=== PATIENT | female | born 1970 | race African-American/Black ===

== ENCOUNTER 2016-03-12 12:37 | Observation (INO) | payer OTHER ==
[~2016-03-12] VITALS: Ht 167.6 cm; Wt 126.2 kg
[2016-03-12] VITALS (7 sets, daily range): BP systolic 116–149; BP diastolic 68–83
[~2016-03-12 12:37] MED LIST: ACYCLOVIR200 M1 NG; ALEVE220 MG PO; CARVEDILOL6.25 MG PO; CLINDAMYCIN HC300 MG PO; LEXAPRO20 MG PO; LISINOPRIL10 MG PO; MUCINEX DM ER1 EACH PO; PRILOSEC OTC20 MG PO; SPIRONOLACTONE25 MG PO; TRAMADOL HCL50 MG PO; TRAZODONE HCL50 MG PO; TYLENOL EXTRA500 MG PO; ZANTAC 2525 MG PO; ZOVIRAX800 M1 PO
[2016-03-12 14:20] LABS: CHLORIDE 107 mEq/L (99-109); POTASSIUM 4.5 mEq/L (3.7-5.4); SODIUM 136 mEq/L (136-147)
[2016-03-12 14:22] LABS: GLUCOSE 129 mg/dL (70-99)
[2016-03-12 14:23] LABS: ANION GAP 10 MEQ/L (2-14)
[2016-03-12 14:24] LABS: INTER. NORMALIZED RATIO 1.1; PROTHROMBIN TIME 11.2 (9.2-11.2); PTT 39.2 (25-32); TOTAL BILIRUBIN 0.3 mg/dL (0.0-1.0)
[2016-03-12 14:25] LABS: ALKALINE PHOSPHATASE 54 IU/L (3-129)
[2016-03-12 14:26] LABS: GFR ESTIMATE (CALCULATED) > 59 mL/min/
[2016-03-12 14:27] LABS: UREA NITROGEN (BUN) 12 mg/dL (9-23)
[2016-03-12 14:29] LABS: LIPASE 58 U/L (1.0-51.0)
[2016-03-12 14:32] LABS: TROP-I INTERPRETATION NEGATIVE; TROPONIN-I 0.02 ng/mL (0.0-0.30)
[2016-03-12 14:50] LABS: EOSINOPHIL (%) 0 % (0-5); HEMATOCRIT 15.9 % (36.0-46.0); IMMATURE GRANULOCYTE (%) 0.7 % (0.0-0.7); IMMATURE GRANULOCYTE COUNT 0.5 K/uL; LYMPHOCYTE COUNT 2.2 K/uL (1.0-2.8); MCH 25.1 PG (29.0-34.0); MCHC 28.9 G/DL (30.0-36.0); MCV 86.9 FL (83-99); MEAN PLAT.VOLUME 10.3 uM^3 (9.5-12.4); MONOCYTE (%) 2.8 % (3-12); MONOCYTE COUNT 0.2 K/uL (0-0.8); NEUTROPHIL (%) 63.4 % (45-76); NEUTROPHIL COUNT 4.3 K/uL (1.8-6.4); PLATELET COUNT 402 K/uL (156-360); RBC DIS.WIDTH-CV 16.9 % (11.8-14.6); RBC DIS.WIDTH-SD 51.6 % (39-53); RED BLOOD COUNT 1.83 M/uL (3.80-5.20); WHITE BLOOD COUNT 6.8 K/uL (4.1-10.2)
[2016-03-12 15:52] LABS: ABSOLUTE RETICULOCYTE CT. 0.07 M/uL (0.02-0.08); IMM.RETIC FRACTION 14.9 % (3-19); RETIC HGB EQUIVALENT 13.4 (28-36); RETICULOCYTE COUNT 4.1 % (0.5-1.8)
[2016-03-12] MEDS ORDERED: POTASSIUM CHLO10 ME4 PO (16:25)
[2016-03-12] MEDS ORDERED: FUROSEMIDE20 MG PO (16:26)
[2016-03-12] MEDS ORDERED: ATOVAQUONE750 MG/5 M PO (16:26)
[2016-03-12] MEDS ORDERED: PANTOPRAZOLE SO40 MG PO (16:26)
[2016-03-12] MEDS ORDERED: RITUXAN10 MG/ML IJ (16:29)
[2016-03-12] MEDS ORDERED: PREDNISONE10 MG PO (16:30)
[2016-03-12] MEDS ORDERED: MAGNESIUM OXID200 MG PO (16:30)
[2016-03-12] MEDS ORDERED: CALCIUM PO (16:37)
[2016-03-12] MEDS ORDERED: HIV MEDICATION PO (16:55)
[2016-03-12 17:15] LABS: FERRITIN 16 NG/ML (10-291)
[2016-03-12 17:32] LABS: IRON 7 MCG/DL (35-150)
[2016-03-13] VITALS (13 sets, daily range): BP systolic 110–149; BP diastolic 59–96
[2016-03-13 00:21] LABS: TROP-I INTERPRETATION NEGATIVE; TROPONIN-I < 0.01 ng/mL (0.0-0.30)
[2016-03-13 08:22] LABS: HEMATOCRIT 22.1 % (36.0-46.0); MCH 26.2 PG (29.0-34.0); MCHC 31.2 G/DL (30.0-36.0); RBC DIS.WIDTH-CV 16.7 % (11.8-14.6); RBC DIS.WIDTH-SD 50.6 % (39-53)
[2016-03-13 08:23] LABS: MCV 82.7 FL (83-99); RED BLOOD COUNT 2.63 M/uL (3.80-5.20); WHITE BLOOD COUNT 9.2 K/uL (4.1-10.2)
[2016-03-13 08:34] LABS: ANION GAP 9 MEQ/L (2-14); CHLORIDE 103 MEQ/L (99-109); POTASSIUM 4.4 MEQ/L (3.7-5.4); SAMPLE HEMOLYSIS CHECK 0; SAMPLE ICTERIC CHECK 0; SAMPLE LIPEMIA CHECK 0; SODIUM 135 MEQ/L (136-147)
[2016-03-13 08:39] LABS: GFR ESTIMATE (CALCULATED) > 59 mL/min/; GLUCOSE 108 mg/dL (70-99); UREA NITROGEN (BUN) 14 mg/dL (9-23)
[2016-03-13 09:55] LABS: PLATELET COUNT UNABLE TO REPORT K/uL (156-360)
[2016-03-13 20:19] LABS: HEMATOCRIT 27.4 % (36.0-46.0); MCV 82.3 FL (83-99)
[2016-03-14 00:36] VITALS: BP 161/102
[2016-03-14 04:13] VITALS: BP 153/96
[2016-03-14 06:39] LABS: HEMATOCRIT 24.7 % (36.0-46.0); MCH 25.9 PG (29.0-34.0); MCHC 31.2 G/DL (30.0-36.0); MCV 83.2 FL (83-99); RBC DIS.WIDTH-CV 17.2 % (11.8-14.6); RBC DIS.WIDTH-SD 52.3 % (39-53); RED BLOOD COUNT 2.97 M/uL (3.80-5.20); WHITE BLOOD COUNT 7.3 K/uL (4.1-10.2)
[2016-03-14 07:02] LABS: EOSINOPHIL (%) 0.1 % (0-5); IMMATURE GRANULOCYTE (%) 0.7 % (0.0-0.7); IMMATURE GRANULOCYTE COUNT 0.1 K/uL; LYMPHOCYTE COUNT 1.7 K/uL (1.0-2.8); MONOCYTE (%) 6.5 % (3-12); MONOCYTE COUNT 0.5 K/uL (0-0.8); NEUTROPHIL (%) 69.3 % (45-76)
[2016-03-14] MEDS ORDERED: FERROUS SULFAT325 MG PO (07:52)
[2016-03-14 08:13] VITALS: BP 133/69
[2016-03-14 08:24] LABS: MEAN PLAT.VOLUME 10.6 uM^3 (9.5-12.4); PLAT.SUFFICIENCY INCREASED; PLATELET COUNT 338 K/uL (156-360); USER ID SDF
[2016-03-14 09:00] LABS: LD-1/LD-2 RATIO 0.63 (())
[2016-03-14] MEDS ORDERED: CLINDAMYCIN HC300 MG PO (11:26)
== END 2016-03-14 13:35 | disposition home or self-care (01) ==
LOC: EME 12:37 → 5WEST 15:51 → EDOF 15:51 → 5WEST 17:21
PROVIDERS: Emergency Medicine; Internal Medicine; Student in an Organized Health Care Education/Training Program
PROC: 30233N1 Transfusion of Nonautologous Red Blood Cells into Peripheral Vein, Percutaneous Approach (ICD-10-PCS; principal; 2016-03-12)
DX: D50.9 Iron deficiency anemia, unspecified (principal); D69.6 Thrombocytopenia, unspecified; B20 Human immunodeficiency virus [HIV] disease; B19.20 Unspecified viral hepatitis C without hepatic coma; D63.8 Anemia in other chronic diseases classified elsewhere; K08.89 Other specified disorders of teeth and supporting structures; R06.09 Other forms of dyspnea; F17.200 Nicotine dependence, unspecified, uncomplicated; Z88.0 Allergy status to penicillin; Z82.49 Family history of ischemic heart disease and other diseases of the circulatory system; Z83.3 Family history of diabetes mellitus
CPT/HCPCS: 71020; 80048; 80053; 82272; 82607; 82728; 82746; 83540; 83615 90; 83625 90; 83690; 84466; 84484; 85014; 85018; 85025; 85025 91; 85027; 85045; 85610; 85730; 86850; 86900; 86901; 86920; 99281; 99284; G0378; J1940; J7512; P9016

== ENCOUNTER 2017-03-12 18:28 | Emergency (ER) | payer OTHER ==
[~2017-03-12] VITALS: Ht 154.9 cm; Wt 95.4 kg
[~2017-03-12 18:28] MED LIST changes: +ATORVASTATIN CA40 MG PO; +ATOVAQUONE750 MG/5 M PO; +CALCIUM PO; +FERROUS SULFAT325 MG PO; +FUROSEMIDE20 MG PO; +GENVOYA TABLET1 EACH PO; +HIV MEDICATION PO; +MAGNESIUM OXID200 MG PO; +MULTIPLE VITAM1 EAC4 PO; +PANTOPRAZOLE SO40 MG PO; +PHILLIPS'400 MG/5 M PO; +POTASSIUM CHLO10 ME4 PO; +PREDNISONE10 MG PO; +RAYOS2 MG PO; +RITUXAN10 MG/ML IJ; +TOPROL XL25 MG PO
[2017-03-12 19:38] LABS: HEMATOCRIT 38.8 % (36.0-46.0); HEMOGLOBIN 12.1 G/DL (11.9-15.5); MCH 27.8 PG (29.0-34.0); MCHC 31.2 G/DL (30.0-36.0); MCV 89.2 FL (83-99); PLATELET COUNT 232 K/uL (156-360); RBC DIS.WIDTH-CV 17.1 % (11.8-14.6); RBC DIS.WIDTH-SD 56.5 % (39-53); RED BLOOD COUNT 4.35 M/uL (3.80-5.20)
[2017-03-12 19:47] LABS: CHLORIDE 105 mEq/L (99-109); POTASSIUM 3.8 mEq/L (3.7-5.4); SODIUM 138 mEq/L (136-147)
[2017-03-12 19:48] LABS: GLUCOSE 86 mg/dL (70-99)
[2017-03-12 19:52] LABS: CREATININE 0.6 mg/dL (0.6-1.3); GFR ESTIMATE (CALCULATED) > 59 mL/min/
[2017-03-12 19:53] LABS: UREA NITROGEN (BUN) 6 mg/dL (9-23)
[2017-03-12] MEDS ORDERED: PROVENTIL HFA6.7 GM IH (21:44)
[2017-03-12] MEDS ORDERED: ZOFRAN ODT4 MG PO (21:44)
[2017-03-12] MEDS ORDERED: TAMIFLU75 MG PO (21:44)
[2017-03-12 22:22] VITALS: BP 160/117
== END 2017-03-12 22:24 | disposition home or self-care (01) ==
LOC: EME 18:28
PROVIDERS: Physician Assistant
DX: J10.1 Influenza due to other identified influenza virus with other respiratory manifestations (principal); R51 Headache; B20 Human immunodeficiency virus [HIV] disease; I10 Essential (primary) hypertension; Z86.19 Personal history of other infectious and parasitic diseases; F17.200 Nicotine dependence, unspecified, uncomplicated
CPT/HCPCS: 71046; 80048; 85027; 87502; 94640; 99281; 99284